=== PATIENT | male | born 1945 | race Two or more races ===

== ENCOUNTER → 2021-08-09 | Outpatient (CLI) | payer OTHER, MEDICAID ==
[~2021-08-09] MED LIST: ALBUTEROL SULF 2.5 MG/0.5ML(0.5%) NEB SOLN ONE; SODIUM CHLORIDE 0.9 % NEB SOLN 3ML NEB ONE
== END | disposition home or self-care (01) ==
LOC: RT 08:18
PROVIDERS: ATTEND Internal Medicine Pulmonary Disease
DX: R06.02 Shortness of breath (principal); U07.1 COVID-19
CPT/HCPCS: 94060; 94618; 94727; 94729

== ENCOUNTER 2023-07-24 06:00 | Inpatient (IN) | payer OTHER, MEDICAID ==
[2023-07-22 10:48] LABS: Urine Bacteria None Seen /hpf (None Seen); Urine WBC None Seen /hpf (0 - 3)
[2023-07-22 10:58] LABS: Basophils # (auto) 0 10 ^3/uL (0-0.2); Basophils % (auto) 0.5 % (0.0-2.0); Eosinophils # (auto) 0.1 10 ^3/uL (0-0.8); Hematocrit 46.3 % (41.0-53.0); Hemoglobin 15.8 g/dL (13.5-17.5); Lymphocytes % (auto) 24.5 % (10.0-50.0); Mean Corpuscular Hemoglobin 28.8 pg (28.0-32.0); Mean Corpuscular Hgb Conc. 34.1 g/dL (32.0-36.0); Mean Corpuscular Volume 84.3 fL (80.0-100.0); Monocytes # (auto) 0.6 10 ^3/uL (0-1.3); Monocytes % (auto) 7.2 % (0.0-12.0); Neutrophils # (auto) 5.3 10 ^3/uL (1.6-8.6); Neutrophils % (auto) 66.8 % (37.0-80.0); Red Blood Cells 5.49 10^6/uL (4.5-5.90); Red Cell Distribution Width 14.2 % (11.8-14.3)
[2023-07-22 11:09] LABS: INR 0.97 (0.9-1.15); Partial Thromboplastin Time 27.5 SEC (24.5-34.5); Prothrombin Time 10.2 sec (9.3-11.8)
[2023-07-22 11:21] LABS: Urine Blood Negative /uL (Negative); Urine Clarity Clear (Clear); Urine Color Yellow (Yellow); Urine Mucus FEW (None Seen); Urine Protein, UAD TRACE (Negative); Urine Specific Gravity 1.025 (1.001-1.035); Urine Urobilinogen 3 mg/dL (Negative); Urine pH 7.5 (5.0-9.0)
[2023-07-22 11:29] LABS: Alanine Aminotransferase 20 U/L (7-40); Albumin 4.3 g/dL (3.2-4.8); Alkaline Phosphatase 55 U/L (46-116); Anion Gap 8 (5-15); Aspartate Aminotransferase 17 U/L (13-40); Bilirubin, Total 0.9 mg/dL (0.2-1.0); Blood Urea Nitrogen 17 mg/dL (9-23); Calcium 9.4 mg/dL (8.5-10.1); Carbon Dioxide 26 mmol/L (20-30); Chloride 105 mmol/L (98-107); Glucose 97 mg/dL (74-106); Potassium 4.6 mmol/L (3.5-5.1); Sodium 139 mmol/L (136-145); Total Protein 6.7 g/dL (5.7-8.2)
[~2023-07-24] VITALS: Ht 167.6 cm; Wt 115.4 kg
[~2023-07-24 06:00] MED LIST changes: -ALBUTEROL SULF 2.5 MG/0.5ML(0.5%) NEB SOLN ONE; +HYDR12.59 PO; +LEVO25TA6 PO; +PRAV20TA3 PO; -SODIUM CHLORIDE 0.9 % NEB SOLN 3ML NEB ONE
[2023-07-24] MEDS: ceFAZolin 2 GM/D5W50ml 50 ML IV ONE (06:34)
[2023-07-24] MEDS: EPINEPHrine HCL 1 MG/1 ML AMP ONE ×2 (06:41→06:49)
[2023-07-24] MEDS: DexAMETHasone SOD PHOS 4 MG/1ML SDV INJ ONE (06:41)
[2023-07-24] MEDS: BUPIVACAINE HCL 50 ML ONE (06:41)
[2023-07-24] MEDS: BUPIVACAINE 0.25% INJ 50ML VIAL ONE ×2 (06:41→06:49)
[2023-07-24] MEDS: VANCOMYCIN HCL 1000 MG VL ONE ×2 (06:50→07:00)
[2023-07-24] MEDS: TRANEXAMIC ACID 20 ML ONE (06:51)
[2023-07-24] MEDS ORDERED: GLYCOPYRROLATE 0.2 MG/ML 1ML VIAL ONE (06:54)
[2023-07-24] MEDS ORDERED: LIDOCAINE 1% INJ PF 5ML AMP ONE (06:54)
[2023-07-24] MEDS ORDERED: DexAMETHasone SOD PHOS 10MG/1ML VIAL INJ ONE (06:54)
[2023-07-24] MEDS ORDERED: MORPHINE SULF PF 5 MG/10 ML VIAL ONE (06:54)
[2023-07-24] MEDS ORDERED: PROPOFOL 10 MG/ML 20 ML IV ONE ×3 (06:54→09:07)
[2023-07-24] MEDS ORDERED: KETOROLAC TROMETH 30 MG/ML 1ML VIAL ONE ×2 (06:54)
[2023-07-24] MEDS ORDERED: ONDANSETRON HCL 4 MG/2 ML VIAL ONE (06:54)
[2023-07-24] MEDS: CELECOXIB 100 MG CAP PO ONE (07:05)
[2023-07-24] MEDS: ACETAMINOPHEN IV 1000 MG/100ML (10MG/ML) IV ONE (07:05)
[2023-07-24] MEDS: ACETAMINOPHEN IV 100 ML IV ONE (07:06)
[2023-07-24] MEDS: CELECOXIB 100 MG CAP ONE (07:06)
[2023-07-24] MEDS: GABAPENTIN 400 MG CAP ONE (07:06)
[2023-07-24] MEDS: GABAPENTIN 400 MG CAP PO ONE (07:10)
[2023-07-24] MEDS ORDERED: KETAMINE 50mg/ML 1ml syringe ONE (07:16)
[2023-07-24] MEDS ORDERED: ePHEDrine SULFATE 50 MG/ML AMP ONE (08:12)
[2023-07-24] MEDS ORDERED: ACETAMINOPHEN 325 MG TAB PO PRN (09:30)
[2023-07-24] MEDS: D5W/LACTATED RINGERS 1,000 ML IV SCH (09:30)
[2023-07-24] MEDS ORDERED: oxyCODONE HCL 5MG TAB PO PRN (09:30)
[2023-07-24 09:36] VITALS: RESP 16; O2SAT 99
[2023-07-24] MEDS ORDERED: fentaNYL CITRATE 100 MCG/2 ML VL IV PRN (09:45)
[2023-07-24] MEDS ORDERED: ePHEDrine SULFATE 50 MG/ML AMP IV PRN (09:45)
[2023-07-24] MEDS ORDERED: HYDROmorphone HCL 2 MG/ML VL/or syr IV PRN (09:45)
[2023-07-24] MEDS ORDERED: NALOXONE HCL 0.4 MG/ML VIAL IV PRN (09:45)
[2023-07-24] MEDS ORDERED: LABETALOL HCL 5 MG/ML 4ML SYRINGE IV PRN (09:45)
[2023-07-24] MEDS ORDERED: ONDANSETRON HCL 4 MG/2 ML VIAL IV PRN (09:45)
[2023-07-24] MEDS ORDERED: hydrALAZINE HCL 20 MG/ML VL IV PRN (09:45)
[2023-07-24] MEDS ORDERED: FLUMAZENIL 0.1 MG/ML INJ 10ML MDV IV PRN (09:45)
[2023-07-24] MEDS: LEVOTHYROXINE SODIUM 25 MCG TAB PO SCH (10:47)
[2023-07-24] MEDS: PRAVASTATIN SODIUM 20 MG TAB PO SCH (10:48)
[2023-07-24] MEDS: KETOROLAC TROMETH 30 MG/ML 1ML VIAL IV SCH (12:42)
[2023-07-24] MEDS: ceFAZolin 2 GM/D5W50ml 50 ML IV SCH (14:19)
[2023-07-24] MEDS: ceFAZolin 1GM/50ML 100 ML IV ONE (14:24)
[2023-07-24] MEDS: oxyCODONE HCL 5MG TAB PO PRN ×2 (16:38)
[2023-07-24 17:00] VITALS: BP 129/64; PULSE 61; RESP 18; TEMP 97.4; O2SAT 91
[2023-07-24 17:17] VITALS: BP 129/64; PULSE 67; RESP 18; TEMP 97.4
[2023-07-24] MEDS: PREGABALIN 25 MG CAP PO SCH (17:55)
[2023-07-24] MEDS: ACETAMINOPHEN 325 MG TAB PO SCH (17:55)
[2023-07-24 18:02] VITALS: BP 129/64; PULSE 67; RESP 18; TEMP 97.4; O2SAT 93
[2023-07-24 21:00] VITALS: BP 115/62; PULSE 65; RESP 18; TEMP 97.6; O2SAT 91
[2023-07-25] VITALS (7 sets, daily range): BP systolic 102–163; BP diastolic 56–74; PULSE 55–61; RESP 16–20; TEMP 97.5–98.1; O2SAT 93–98
[2023-07-25 06:17] LABS: Basophils # (auto) 0 10 ^3/uL (0-0.2); Basophils % (auto) 0.1 % (0.0-2.0); Eosinophils # (auto) 0 10 ^3/uL (0-0.8); Hematocrit 37.9 % (41.0-53.0); Hemoglobin 12.7 g/dL (13.5-17.5); Lymphocytes % (auto) 8.3 % (10.0-50.0); Mean Corpuscular Hemoglobin 28.8 pg (28.0-32.0); Mean Corpuscular Hgb Conc. 33.6 g/dL (32.0-36.0); Mean Corpuscular Volume 85.7 fL (80.0-100.0); Monocytes # (auto) 0.8 10 ^3/uL (0-1.3); Monocytes % (auto) 6.4 % (0.0-12.0); Neutrophils # (auto) 10.4 10 ^3/uL (1.6-8.6); Neutrophils % (auto) 85.2 % (37.0-80.0); Red Blood Cells 4.42 10^6/uL (4.5-5.90); White Blood Cell 12.2 10^3/uL (4.4-10.8)
[2023-07-25 06:32] LABS: Alanine Aminotransferase 16 U/L (7-40); Albumin 3.3 g/dL (3.2-4.8); Alkaline Phosphatase 41 U/L (46-116); Anion Gap 7 (5-15); Aspartate Aminotransferase 15 U/L (13-40); BUN/Creatinine Ratio 21.3 (10.0-20.0); Bilirubin, Total 0.6 mg/dL (0.2-1.0); Blood Urea Nitrogen 16 mg/dL (9-23); Calcium 8.6 mg/dL (8.5-10.1); Carbon Dioxide 25 mmol/L (20-30); Chloride 106 mmol/L (98-107); Glucose 158 mg/dL (74-106); Potassium 4.5 mmol/L (3.5-5.1); Sodium 138 mmol/L (136-145)
[2023-07-25 06:33] LABS: Total Protein 5.4 g/dL (5.7-8.2)
[2023-07-25] MEDS: ASPirin 81 mg TAB PO SCH (10:27)
[2023-07-26 01:00] VITALS: BP 138/70; PULSE 59; RESP 20; TEMP 97.6; O2SAT 95
[2023-07-26 05:00] VITALS: BP 133/66; PULSE 61; RESP 20; TEMP 98.2; O2SAT 95
[2023-07-26 09:00] VITALS: BP 115/76; PULSE 55; RESP 17; TEMP 97.6; O2SAT 99
[2023-07-26 13:00] VITALS: BP 156/76; PULSE 58; RESP 16; TEMP 97.6; O2SAT 99
== END 2023-07-26 16:02 | disposition home or self-care (01) | DRG 470 ==
LOC: SUR 06:00 → OVERFLOW 09:51 → WEST WING 17:24
PROVIDERS: ADMIT Orthopaedic Surgery; ATTEND Internal Medicine
PROC: 0SRC069 Replacement of Right Knee Joint with Oxidized Zirconium on Polyethylene Synthetic Substitute, Cemented, Open Approach (ICD-10-PCS; principal; 2023-07-24 07:29)
DX: M17.11 Unilateral primary osteoarthritis, right knee (principal); I10 Essential (primary) hypertension; E03.9 Hypothyroidism, unspecified; E78.5 Hyperlipidemia, unspecified; E66.01 Morbid (severe) obesity due to excess calories; Z86.718 Personal history of other venous thrombosis and embolism; Z68.37 Body mass index [BMI] 37.0-37.9, adult
CPT/HCPCS: 36415; 73560; 80053; 81001; 84443; 85025; 85610; 85730; 86850; 86900; 86901; 97110; 97116; 97163; 97530; G0378; J0131; J0171; J1100; J1885; J2405; J2704; J3490